=== PATIENT | female | born 1980 | race Two or more races ===

== ENCOUNTER 2023-11-25 16:21 | Emergency (ER) | payer BC ==
[~2023-11-25] VITALS: Ht 172.7 cm; Wt 113.4 kg
[2023-11-25] MEDS ORDERED: AMLODIPINE BESY10 MG PO (17:07)
[2023-11-25 17:09] VITALS: BP 133/67; O2SAT 99
[2023-11-25] MEDS ORDERED: KETOROLAC TROMETHAMINE 30 MG VIAL IV ONE (18:00)
[2023-11-25] MEDS ORDERED: KETOROLAC TROMETHAMINE 30 MG VIAL ONE (18:03)
[2023-11-25 18:27] LABS: HEMATOCRIT 37.1 % (36.0-45.00); HEMOGLOBIN 12.6 g/dL (12.0-15.00); MEAN CELL VOLUME 83.5 fL (80.00-100.00); MEAN CORPUSCULAR HEMOGLOBIN 28.4 pg (27.00-32.0); PLATELET COUNT 301 K/uL (150-450); RED BLOOD COUNT 4.45 M/uL (4.00-6.00); RED CELL DISTRIBUTION WIDTH 14.3 % (11.5-14.5)
[2023-11-25 18:46] LABS: CALCIUM 9.5 mg/dL (8.5-10.1); CREATININE SERUM 0.94 mg/dL (0.55-1.02); GFR 65.62; POTASSIUM 3.59 mEq/L (3.5-5.1)
[2023-11-25 18:57] LABS: URINE APPEARANCE Cloudy; URINE BILIRRUBIN Negative (NEGATIVE); URINE BLOOD Negative; URINE COLOR Yellow; URINE GLUCOSE Negative (NEGATIVE); URINE KETONE Negative (NEGATIVE); URINE LEUKOCYTE Trace; URINE NITRATE Negative; URINE PROTEIN Trace (NEGATIVE)
[2023-11-25 19:00] LABS: URINE BACTERIA 4797.8 uL (0.0-1933); URINE EPITHELIAL CELLS 39.8 uL (0.0-38.8); URINE RBC 8.7 uL (0.0-20.8); URINE WBC 124.8 uL (0.0-23.2)
[2023-11-25 19:34] LABS: URINE CAST 0.61 uL (0.0-1.40); URINE CRYSTALS MODERATE /HPF
[2023-11-25] MEDS ORDERED: PHENAZOPYRIDINE HCL 100 MG TABLET PO ONE ×2 (20:15→20:19)
[2023-11-25] MEDS ORDERED: OxyCODONE HCL/APAP UD (PERCOCET) PO ONE (20:30)
== END 2023-11-25 20:39 | disposition home or self-care (01) ==
LOC: ER 16:22
PROVIDERS: Nurse Practitioner Family
DX: R10.9 Unspecified abdominal pain (principal); I10 Essential (primary) hypertension; Z87.442 Personal history of urinary calculi; N39.0 Urinary tract infection, site not specified; N20.0 Calculus of kidney